=== PATIENT | male | born 1980 | race Caucasian/White ===

== ENCOUNTER 2022-09-24 11:47 | Emergency (ER) | payer OTHER ==
[~2022-09-24] VITALS: Ht 182.9 cm; Wt 115.5 kg
[2022-09-24] MEDS ORDERED: DAPA10TA PO (11:53)
[2022-09-24] MEDS ORDERED: DULA1.5P SQ (11:53)
[2022-09-24] MEDS ORDERED: PIPERACILLIN/TAZO 3.375 GM/D5W 50 ML IV SCH (12:00)
[2022-09-24] MEDS ORDERED: 0.9% SODIUM CHLORIDE 10 ML SYRINGE IVP PRN (12:15)
[2022-09-24] MEDS ORDERED: SODIUM CHLORIDE 0.9% 2,300 ML IV ONE (12:15)
[2022-09-24] MEDS ORDERED: ACETAMINOPHEN 500 MG TABLET PO ONE (12:15)
[2022-09-24 12:32] LABS: BASOPHILS % (AUTO) 0.3 % (0.0-2.0); EOSINOPHILS % (AUTO) 0.5 % (1.0-6.0); HEMATOCRIT 54.3 % (41-53); LYMPHOCYTES # (AUTO) 0.8 K/uL (1.0-4.8); LYMPHOCYTES % (AUTO) 6.7 % (22.0-44.0); MEAN CORPUSCULAR HEMOGLOBIN 29.4 pg (26.0-34.0); MEAN CORPUSCULAR HGB CONC 33.2 G/dL (31.0-37.0); MEAN CORPUSCULAR VOLUME 88 fL (80-100); MONOCYTES # (AUTO) 0.5 K/uL (0.1-1.0); MONOCYTES % (AUTO) 4.6 % (2.0-9.0); NEUTROPHILS # (AUTO) 10.2 K/uL (1.8-7.7); PLATELET COUNT (AUTO) 254 K/uL (150-450); RED BLOOD CELL COUNT(AUTO) 6.14 MIL/uL (4.50-5.90); RED CELL DISTRIBUTION WIDTH 13.5 % (11.5-14.5)
[2022-09-24 12:33] LABS: NEUTROPHILS % (AUTO) 87.9 % (40.0-70.0)
[2022-09-24 12:42] LABS: ANION GAP 11 mmol/L (8-16); CALCIUM, TOTAL 9.6 mg/dL (8.8-10.5); CARBON DIOXIDE 27 mmol/L (22-29); CHLORIDE 99 mmol/L (98-107); CREATININE 1.21 mg/dL (0.60-1.30); GLUCOSE,RANDOM 282 mg/dL (70-110); POTASSIUM 3.9 mmol/L (3.5-5.1); SODIUM SERUM 137 mmol/L (136-145); UREA NITROGEN, BLOOD 10 mg/dL (7-18)
[2022-09-24 12:43] LABS: GLOMERULAR FILTR. RATE CALC > 60 mL/min (>60)
[2022-09-24 13:06] LABS: ALANINE AMINOTRANSFERASE 65 U/L (12-78); ALBUMIN 3.8 g/dL (3.4-5.0); ALKALINE PHOSPHATASE 106 U/L (46-116); ASPARTATE AMINOTRANSFERASE 18 U/L (15-37); BILIRUBIN,TOTAL 0.5 mg/dL (0.1-1.0); CREATINE KINASE, TOTAL ONLY 125 U/L (39-308); TOTAL PROTEIN, SERUM 8.1 g/dL (6.4-8.2)
[2022-09-24] MEDS ORDERED: IOHEXOL 350 MG/ML 100 ML VIAL ONE (13:32)
[2022-09-24] MEDS ORDERED: SODIUM CHLORIDE 0.9% 100 ML ONE (13:32)
[2022-09-24 13:33] LABS: LACTIC ACID 2.8 mmol/L (0.4-2.0)
[2022-09-24 13:44] LABS: INFLUENZA TYPE A NEGATIVE FOR TYPE A (NEGATIVE); INFLUENZA TYPE B NEGATIVE FOR TYPE B (NEGATIVE)
[2022-09-24] MEDS ORDERED: AMOX TR/POT CLAV 875 MG/125 MG TABLET PO ONE (15:00)
[2022-09-24] MEDS ORDERED: HYDROCODONE/ACETAMINOPHEN 5-325 MG TABLET PO ONE (15:00)
[2022-09-24] MEDS ORDERED: HYDR-4723 PO (15:11)
[2022-09-24] MEDS ORDERED: AMOX1TAB16 PO (15:11)
[2022-09-24] MEDS ORDERED: IBUP-1554 PO (15:11)
[2022-09-24 15:19] VITALS: BP 126/85
== END 2022-09-24 15:22 | disposition home or self-care (01) ==
LOC: EMS 11:55
DX: J01.90 Acute sinusitis, unspecified (principal); E11.65 Type 2 diabetes mellitus with hyperglycemia; F10.20 Alcohol dependence, uncomplicated; J45.909 Unspecified asthma, uncomplicated; I10 Essential (primary) hypertension; K04.7 Periapical abscess without sinus; R00.0 Tachycardia, unspecified
CPT/HCPCS: 99285; 96365; 70487; 71045; 96361; 80053; 82550; 83605; 84484; 85025; 87040; 87804; 93005; 36415; J2543; Q9967; J7050

== ENCOUNTER 2022-11-29 21:41 | Emergency (ER) | payer OTHER ==
[~2022-11-29] VITALS: Ht 182.9 cm; Wt 118.2 kg
[~2022-11-29 21:41] MED LIST: AMOX1TAB16 PO; DAPA10TA PO; DULA1.5P SQ; HYDR-4723 PO; IBUP-1554 PO
[2022-11-29] MEDS ORDERED: HYDROCODONE/ACETAMINOPHEN 5-325 MG TABLET PO ONE (22:15)
[2022-11-29] MEDS ORDERED: AMOX TR/POT CLAV 875 MG/125 MG TABLET PO ONE (22:15)
[2022-11-29] MEDS ORDERED: AMOX1TAB16 PO (22:16)
[2022-11-29] MEDS ORDERED: IBUP-1556 PO (22:16)
[2022-11-29] MEDS ORDERED: HYDR-4723 PO ×2 (22:16→22:18)
[2022-11-29 22:33] VITALS: BP 151/94
== END 2022-11-29 22:37 | disposition home or self-care (01) ==
LOC: EMS 21:50
DX: K04.7 Periapical abscess without sinus (principal); K08.89 Other specified disorders of teeth and supporting structures; J45.909 Unspecified asthma, uncomplicated; E11.9 Type 2 diabetes mellitus without complications; L30.9 Dermatitis, unspecified
CPT/HCPCS: 99283

== ENCOUNTER 2023-03-21 10:32 | Emergency (ER) | payer OTHER ==
[~2023-03-21] VITALS: Ht 182.9 cm; Wt 118.2 kg
[~2023-03-21 10:32] MED LIST changes: -DAPA10TA PO; -DULA1.5P SQ; -IBUP-1554 PO; +IBUP-1556 PO
[2023-03-21] MEDS ORDERED: DAPA5TAB PO (10:40)
[2023-03-21] MEDS ORDERED: DULA0.75 SQ (10:40)
[2023-03-21] MEDS ORDERED: LOSA-381 PO (10:40)
[2023-03-21] MEDS ORDERED: ATOR10TA69 PO (10:40)
[2023-03-21] MEDS ORDERED: CEPHALEXIN MONOHYDRATE 500 MG CAPSULE PO ONE (14:30)
[2023-03-21] MEDS ORDERED: LIDOCAINE 1% 10 ML VIAL SQ ONE (14:30)
[2023-03-21] MEDS ORDERED: HYDROCODONE/ACETAMINOPHEN 5-325 MG TABLET PO ONE (14:30)
[2023-03-21] MEDS ORDERED: DOXYCYCLINE HYCLATE 100 MG TABLET PO ONE (14:30)
[2023-03-21 14:50] VITALS: BP 141/79
[2023-03-21] MEDS ORDERED: CEPH-558 PO (15:33)
[2023-03-21] MEDS ORDERED: ACET-2080 PO (15:33)
[2023-03-21] MEDS ORDERED: IBUP-1554 PO (15:33)
[2023-03-21] MEDS ORDERED: DOXY-354 PO (15:33)
== END 2023-03-21 16:04 | disposition home or self-care (01) ==
LOC: EMS 10:35
DX: L03.312 Cellulitis of back [any part except buttock and flank] (principal); L02.222 Furuncle of back [any part, except buttock and flank]; E11.65 Type 2 diabetes mellitus with hyperglycemia; J45.909 Unspecified asthma, uncomplicated; Z98.890 Other specified postprocedural states
CPT/HCPCS: 99284; 10160; 82962; J3490

== ENCOUNTER 2023-06-26 19:59 | Emergency (ER) | payer OTHER ==
[~2023-06-26] VITALS: Ht 182.9 cm; Wt 127.2 kg
[~2023-06-26 19:59] MED LIST changes: +ACET-2080 PO; -AMOX1TAB16 PO; +ATOR10TA69 PO; +CEPH-558 PO; +DAPA5TAB PO; +DOXY-354 PO; +DULA0.75 SQ; -HYDR-4723 PO; +IBUP-1554 PO; -IBUP-1556 PO; +LOSA-381 PO
[2023-06-26 20:33] VITALS: BP 139/91; PULSE 72; RESP 18; TEMP 98.3
[2023-06-26 20:51] LABS: GLUCOMETER DEV NAME(LOC) ERT.5
== END 2023-06-26 21:52 | disposition home or self-care (01) ==
LOC: EMS 20:00
DX: S92.411A Displaced fracture of proximal phalanx of right great toe, initial encounter for closed fracture (principal); E11.65 Type 2 diabetes mellitus with hyperglycemia; X58.XXXA Exposure to other specified factors, initial encounter; Y93.89 Activity, other specified; Y92.89 Other specified places as the place of occurrence of the external cause; Y99.8 Other external cause status
CPT/HCPCS: 82962; 99283

== ENCOUNTER 2023-07-21 21:27 | Emergency (ER) | payer OTHER ==
[~2023-07-21] VITALS: Ht 182.9 cm; Wt 125.0 kg
[~2023-07-21 21:27] MED LIST changes: -CEPH-558 PO; -DOXY-354 PO
[2023-07-21] MEDS ORDERED: SODIUM CHLORIDE 0.9% 1,000 ML IV ONE (22:15)
[2023-07-21 22:52] LABS: APPEARANCE,URINE CLEAR (CLEAR); BILIRUBIN,URINE NEGATIVE (NEGATIVE); GLUCOSE, URINE (UA) >=1000 mg/dL (NEGATIVE); KETONES,URINE NEGATIVE (NEGATIVE); LEUKOCYTE ESTERASE ,URINE NEGATIVE (NEGATIVE); NITRATE,URINE NEGATIVE (NEGATIVE); OCCULT BLOOD,URINE NEGATIVE (NEGATIVE); PH,URINE 5.5 (5.0-8.0); PROTEIN,URINE 100-200,SEE CONFIRM mg/dL (NEGATIVE); SPECIFIC GRAVITIY, URINE 1.036 (1.003-1.030); UROBILINOGEN,URINE <=1.0 mg/dL (<=1.0)
[2023-07-21 23:07] LABS: SULFOSALICYLIC ACID,URINE 3+ (Negative)
[2023-07-21 23:08] LABS: BACTERIA,URINE None Seen /HPF (None Seen); RBC,URINE None Seen /HPF (0-2); WBC,URINE None Seen /HPF (0-5)
[2023-07-21 23:32] LABS: COVID AG,FIA SOURCE NASOPHARYNGEAL
[2023-07-21 23:52] LABS: INFLUENZA TYPE A NEGATIVE FOR TYPE A (NEGATIVE); INFLUENZA TYPE B NEGATIVE FOR TYPE B (NEGATIVE)
[2023-07-22 02:04] LABS: BASOPHILS % (AUTO) 0.9 % (0.0-2.0); EOSINOPHILS % (AUTO) 7.9 % (1.0-6.0); HEMATOCRIT 50.6 % (41-53); HEMOGLOBIN 17.1 g/dL (13.5-17.5); LYMPHOCYTES # (AUTO) 2.9 K/uL (1.0-4.8); MEAN CORPUSCULAR HEMOGLOBIN 28.9 pg (26.0-34.0); MEAN CORPUSCULAR HGB CONC 33.8 G/dL (31.0-37.0); MEAN CORPUSCULAR VOLUME 85 fL (80-100); MONOCYTES # (AUTO) 0.5 K/uL (0.1-1.0); NEUTROPHILS # (AUTO) 5.2 K/uL (1.8-7.7); NEUTROPHILS % (AUTO) 55.2 % (40.0-70.0); PLATELET COUNT (AUTO) 301 K/uL (150-450); RED BLOOD CELL COUNT(AUTO) 5.93 MIL/uL (4.50-5.90); RED CELL DISTRIBUTION WIDTH 13.3 % (11.5-14.5)
[2023-07-22 02:10] LABS: ANION GAP 11 mmol/L (8-16); CALCIUM, TOTAL 8.9 mg/dL (8.8-10.5); CARBON DIOXIDE 25 mmol/L (22-29); CHLORIDE 99 mmol/L (98-107); CREATININE 0.98 mg/dL (0.60-1.30); GLOMERULAR FILTR. RATE CALC > 60 mL/min (>60); GLUCOSE,RANDOM 273 mg/dL (70-110); POTASSIUM 3.6 mmol/L (3.5-5.1); SODIUM SERUM 135 mmol/L (136-145)
[2023-07-22 02:16] LABS: ALANINE AMINOTRANSFERASE 69 U/L (12-78); ALBUMIN 3.5 g/dL (3.4-5.0); ALKALINE PHOSPHATASE 126 U/L (46-116); ASPARTATE AMINOTRANSFERASE 30 U/L (15-37); BILIRUBIN,TOTAL 0.3 mg/dL (0.1-1.0); TOTAL PROTEIN, SERUM 7.2 g/dL (6.4-8.2)
[2023-07-22] MEDS ORDERED: PSEUDOEPHEDRINE HCL 30 MG TABLET PO ONE (02:45)
[2023-07-22 03:01] VITALS: BP 132/93; PULSE 83; RESP 18; TEMP 98.6
[2023-07-22 03:10] LABS: GLUCOMETER DEV NAME(LOC) ER.6
== END 2023-07-22 03:20 | disposition home or self-care (01) ==
LOC: EMS 21:27
DX: J30.9 Allergic rhinitis, unspecified (principal); E11.65 Type 2 diabetes mellitus with hyperglycemia; R07.89 Other chest pain; Z20.822 Contact with and (suspected) exposure to COVID-19
CPT/HCPCS: 99285; 96360; 71045; 87426; 80053; 81001; 82962; 84484; 85025; 87804; 36415; 93005; C9803; 81002

== ENCOUNTER 2024-05-26 01:03 | Emergency (ER) | payer OTHER ==
[~2024-05-26] VITALS: Ht 182.9 cm; Wt 118.2 kg
[2024-05-26 01:10] VITALS: TEMP 98.1
[2024-05-26 01:33] VITALS: BP 142/100; PULSE 78; RESP 16
[2024-05-26 02:00] LABS: BASOPHILS % (AUTO) 0.8 % (0.0-2.0); EOSINOPHILS % (AUTO) 6.5 % (1.0-6.0); HEMATOCRIT 49.4 % (41-53); LYMPHOCYTES # (AUTO) 3.2 K/uL (1.0-4.8); LYMPHOCYTES % (AUTO) 38.1 % (22.0-44.0); MEAN CORPUSCULAR HEMOGLOBIN 29.8 pg (26.0-34.0); MEAN CORPUSCULAR HGB CONC 34.4 G/dL (31.0-37.0); MEAN CORPUSCULAR VOLUME 86 fL (80-100); MONOCYTES # (AUTO) 0.6 K/uL (0.1-1.0); MONOCYTES % (AUTO) 6.8 % (2.0-9.0); NEUTROPHILS # (AUTO) 4.1 K/uL (1.8-7.7); NEUTROPHILS % (AUTO) 47.8 % (40.0-70.0); PLATELET COUNT (AUTO) 261 K/uL (150-450); RED BLOOD CELL COUNT(AUTO) 5.72 MIL/uL (4.50-5.90); WHITE BLOOD COUNT (AUTO) 8.5 K/uL (4.5-11.0)
[2024-05-26 02:07] LABS: ANION GAP 8 mmol/L (8-16); CALCIUM, TOTAL 9.4 mg/dL (8.8-10.5); CARBON DIOXIDE 30 mmol/L (22-29); CHLORIDE 102 mmol/L (98-107); CREATININE 1.07 mg/dL (0.60-1.30); GLOMERULAR FILTR. RATE CALC > 60 mL/min (>60); GLUCOSE,RANDOM 235 mg/dL (70-110); POTASSIUM 3.5 mmol/L (3.5-5.1); SODIUM SERUM 140 mmol/L (136-145); UREA NITROGEN, BLOOD 12 mg/dL (7-18)
[2024-05-26 02:16] LABS: B-TYPE NATRIURETIC PEPTIDE 5 pg/mL (0-100); TROPONIN I-HIGH SENSITIVITY 9 ng/L (<76)
== END 2024-05-26 03:04 | disposition home or self-care (01) ==
LOC: EMS 01:03
DX: R07.89 Other chest pain (principal); K21.9 Gastro-esophageal reflux disease without esophagitis; E11.65 Type 2 diabetes mellitus with hyperglycemia; F41.9 Anxiety disorder, unspecified; J45.909 Unspecified asthma, uncomplicated
CPT/HCPCS: 71046; 80048; 84484; 85025; 93005; 99285; 36415-L1; 36415-TC